=== PATIENT | female | born 1940 | race Caucasian/White ===

== ENCOUNTER 2024-05-12 20:15 | Inpatient (IN) | payer MEDICARE, OTHER, SELFPAY ==
--- OUTSIDE RECORDS SUMMARY | 2024-05-12 20:20 | XMS_ITS ---
Author Name Unknown Organization [address] [place] [address] Medical Cli [facility] Address [address] [place] [phone] Care Team Providers Care Set Up And Lay Out Inspector Name Role Phone Rebekah Lemusew Primary Care Provider REASON FOR VISIT Eliquis unaffordable Medications Medication SIG (Take, Route, Frequency, Duration) Notes Start Date End Date Status Apixaban 5 MG 1 tablet Orally Twic e a day for 90 days 05/07/2022 Active Eliquis 5 MG Take one tablet Oral ly twice daily for 90 days 04/26/2024 Active Social History Sex Assigned At : Social History Observation Description Sex Assigned At Female Encounters Encounter Location Date Provider Diagnosis [address] [place] [address] [facility] [address] [place] [phone] 04/22/2024 Zain Lemus Venous thrombosis I82.90 Assessments Encounter Date Diagnosis (ICD Code) Assessment Notes Treatment Notes Treatment Clinical Notes 04/22/2024 Venous thrombosis (ICD-10 - I82.90) Plan Of Treatment Medication Medication Name Sig Start Date Stop Date Notes Apixaban 5 MG 1 tablet Orally Twice a day for 90 days 11/2021 Eliquis 5 MG Take one tablet Oral ly twice daily for 90 days 04/26/2024 Next Appt Details Provider Name:Zain gallardo, 05/28/2024 04:40:00 PM, [address] [place] [address], [phone], Progress Notes * ALBAN Wilda LDOB: [birth year] (84 yo F)Acc No.[id number]:04/22/2024 Patient:?Wilda THEODORE :1940???Age:84 Y???Sex:Female Address:[facility] [place], [address] * Refills? Continue Apixaban Tablet, 5 MG, Orally, 180 Tablet, 1 tablet, Twice a day, 90 days, Refills=0 Start Eliquis Tablet, 5 MG, Orally, 180 Tablet, Take one tablet, twice daily, 90 days, Refills=0 * true * Date:? Generated for Alex cobb/Marla/eTransmitting on:?05/12/2024 08:20 PM CDT
--- OUTSIDE RECORDS SUMMARY | 2024-05-12 20:20 | XMS_ITS ---
Author Name Unknown Organization [address] [place], [place] [address]i luis Address [address] [place] [phone] Care Team Providers Care Air Transportation Provider Name Role Phone Zain Lemus Primary Care Provider Social History Sex Assigned At : Social History Observation Description Sex Assigned At Female Encounters Encounter Location Date Provider Diagnosis [address] [place] [address] [address] [place] [phone] 04/27/2024 Zain Lemus Venous thrombosis I82.90 Assessments Encounter Date Diagnosis (ICD Code) Assessment Notes Treatment Notes Treatment Clinical Notes 04/27/2024 Venous thrombosis (ICD-10 - I82.90) Plan Of Treatment Medication Medication Name Sig Start Date Stop Date Notes Apixaban 5 MG 1 tablet Orally Twice a day 05/07/2022 Next Appt Details Provider Name:Zain Webb paulina, 05/28/2024 04:40:00 PM, [address] [place] [address], [phone], Progress Notes * Shiv PHOENIXine LDOB: [birth year] (84 yo F)Acc No.[id number]:04/27/2024 Patient:?Wilda PHOENIX :1940???Age:84 Y???Sex:Female Address:[address] [place] [address], [address] * Refills? Stop Apixaban Tablet, 5 MG, Orally, 1 tablet, Twice a day * true * Date:? Generated for Printi ng/Faxing/Mimi on:?05/12/2024 08:20 PM CDT
--- OUTSIDE RECORDS SUMMARY | 2024-05-12 20:20 | XMS_ITS ---
Author Name Unknown Organization [address] [place] [address] Cli luis Address [address] [place] [phone] Care Team Providers Care Pinball Machine Repairer Name Role Phone Zain Lemus Primary Care Provider REASON FOR VISIT 6 wk f/u med check Social History Sex Assigned At : Social History Observation Description Sex Assigned At Female Encounters Encounter Location Date Provider Diagnosis [address] [place] [address] [address] [place] [phone] 04/30/2024 Zain Lemus Plan Of Treatment Next Appt Details Provider Name:Zain gallardo, 05/28/2024 04:40:00 PM, [address] [place] [address], [phone], Progress Notes * PHOENIX Wilda LDOB: [birth year] (84 yo F)Acc No.[id number]:04/30/2024 Progress Notes Patient:?Wilda PHOENIX Pradip Provider:?Zain Lemus MD :1940???Age:84 Y???Sex:Female D ate:04/30/2024 Address:[facility] [address] [facility] [id number] Subjective: * Chief Complaints: Objective: Assessment: Plan: Care Plan: * Problems:? * Billing Information: * Visit Code:? * Procedure Codes:? * Electronic signature of Alejo Lemus MD on 05/12/2024 at 08:19 PM CDT Sign off status: Pending * Provider:?Zain Lemus MD Date:?04/30 Generated for Aelx cobb/Marla/Mimi on:?05/12/2024 08:19 PM CDT
--- OUTSIDE RECORDS SUMMARY | 2024-05-12 20:21 | XMS_ITS | Patient Health Record ---
Author Name Unknown Organization [address] [place] [address] Cli luis Address [address] [place] [address] Care Team Providers Care Shaft Sinker Name Role Phone Zain Lemus Primary Care Provider [phone] Sil Roberts Unavailable [phone] Nery Pena Unavailable [phone] Allergies No Known Allergies Reason For Referral Reason 83 y/o female with L E edema needing chcf and child caregiver private home to help with caring for LE and compression socks and is needing help with basic needs in home: food, bathing, cleaning house. Diagnosis 1 Fluid overload, unsp ecified (E87.70) Diagnosis 2 Peripheral edema (R6 0.9) Referral Organization [address] [place] [address] C linic Referring Provider First Name Zain Referring Provider Last Name Allan Referring Provider [facility]erred Provider Specialty Home Health General Notes Radha Banda 2022 09:40:26 AM >pt called and requested Home Health referral be sent to [facility]. Solo Hannah 06/20/2023 07:26:30 AM >waiting on OV note to be signed.Tommy Kimberly 06/25/2023 08:47:03 AM >faxed referral to [facility] home care [phone] # [phone] Sarah 06/25/2023 09:17:59 AM > [facility] home care called stating they are not accepting new referrals at this timeplaTommy Kimberly 06/27/2023 02:41:29 PM >referral faxed to [facility] [phone] ph# [phone], Bella Rosen 10/21/2023 03:40:38 PM >Faxed again to fx#[phone] Feliciano Duncan Helen 11/04/2023 04:16:47 PM >Called [facility] at ph# [phone]. They did not have a referral but did give me fax# [phone]. Will fax again., Susanna Gonzalez 11/05/2023 11:02:33 AM > [facility] said that referral was more home care not home health. Please refer to another agency, Bella Rosen 11/11/2023 10:38:13 AM >Faxed to [facility] fx# [phone], Marni Wiggins 11/25/2023 09:31:15 AM >Spoke w/[facility] in [place] who advised me to send referral to [facility] because pt lives in [facility]. F: [phone] P: [phone], Susanna Gonzalez 11/25/2023 10:29:04 AM > [facility] called and stated that this pt insurance does not cover in home care. They have reached out to two different 's organizations to see about help. They will keep us updated when they find something., Bella Rosen 12/15/2023 10:56:35 AM >[facility] home health notes attached Referral Priority Routine Reason 83 yr old female wit h chronic edema. Please eval and treat. Recommended [place], [place] area Diagnosis 1 Cellulitis of right lower extremity (L03.115) Diagnosis 2 Edema of both legs ( R60.0) Referral Organization [address] [place] [address] bonny Referring Provider First Name Zain Referring Provider Last Name Allan Referring Provider Speciality Family [facility] Referred Provider Specialty Wound Clinic General Notes Marni Wiggins 2023 12:26:02 PM >Faxed referral to [facility] (I called and confirmed this clinic does wound care) F: [phone] P: , Marni Wiggins 12/02/2023 03:10:40 PM >referral has been received. no appointment scheduled., Sil Sanders 12/25/2023 04:26:48 PM >notes attached. sending to provider to close. Referral Priority Routine Reason 83 yo F, chronic luis ma paras LE w/ cellulitis. Needs home health and home wound care. Eval and treat. Fax to [facility] [phone]. Diagnosis 1 Edema of both legs ( R60.0) Referral Organization [address] [place] [address] bonny Referring Provider First Name Zain Referring Provider Last Name [place] Referring Provider [facility] Referred Provider Specialty Home Health Referral Priority Routine Reason 83 y/o female with c ellulitis, stage II decubitus ulcer on right buttocks, needing dressing changes as well as medication assistance. Please evaluate and treat. Diagnosis 1 Cellulitis (L03.90) Referral Organization [address] [place] [address] bonny Referring Provider First Name Zain Referring Provider Last Name [place] [facility] Specialty [facility] Health General Notes Sil Sanders 09:38:38 AM >referral sent to [facility] [phone] ph# [phone]. looked on map for [facility] and says [facility] ArgyleTommy parada Kimberly 02/12/2024 01:36:47 PM >desean avila called said to send it to [facility] per Tommy Maurice Kimberly 02/12/2024 01:41:18 PM >fax [phone] ph# [phone] Referral Priority Routine Medications Medication SIG (Take, Route, Frequency, Duration) Notes Start Date End Date Status Famotidine 20 MG 1 tablet Orally Once a day for 30 days 05/03/2022 Not-Taking Fluticasone Propionate 50 MCG/ACT 1 spray in each nostril Nasally Once a day Not-Taking Garlic 1000 MG 1 capsule Orally onc e daily for 30 days Not-Taking Lisinopril 10 MG 1 tablet Orally Once a day for 30 days 05/02/2022 Not-Taking Magnesium Oxide 250 MG 1 tablet with kyrie d Orally Once a day for 30 days Not-Taking Nephrocaps Not-Takin g Oxygen 3 Litters nasal canula continuously for forever 2litters 05/23/2022 Not-Taking Post-OP Shoe/Soft Top Women - as directed 1 pair 12/28/2023 Not-Taking Sennosides-Docusate Sodium 8.6-50 MG 1 tablet in the evening as needed Orally Once a day 05/02/2022 Not-Taking Vitamin B-6 25 MG 1 tablet Orally Once a day for 30 days Not-Taking Bactrim DS 800-160 MG 2 tablets twice a day for 10 days Orally for 10 days 03/26/2024 Not-Taking Cymbalta 30 MG 1 capsule Orally Onc e a day for 30 days 03/10/2024 Active Vitamin C 1000 MG 1 tablet Orally Once a day Not-Taking Ginseng 100 MG 1 capsule Orally Onc e a day Unknown Furosemide 40 MG 1 tablet Orally Twic e daily for 30 days 03/18/2022 Active Vitamin D 50 MCG (2000 UT) 1 tablet Orally Once a day Unknown Klor-Con M20 20 MEQ 1 tablet with food Orally twice a day for 30 days 10/28/2022 Active Vitamin K2-Vitamin D3 45-2000 MCG-UNIT as directed Orally Unkno wn Bactrim DS 800-160 MG 1 tablet Orally tw ice a day for 10 days 11/26/2023 Not-Taking Blood Pressure Monitoring Soln - as directed 04/15/2023 Not-Taking Eliquis 5 MG Take one tablet Orally twice daily for 90 days 04/26/2024 Active Cefdinir 300 MG 1 tab Orally Twice daily Not-Taking Clotrimazole 1 % 1 application to affected area Externally Twice a day for 28 day(s) Not-Taking Cyanocobalamin 1000 MCG 1 tablet Orally Once a day 05/03/2022 Not-Taking Debrox 6.5 % 5 drops into affecte d ear Otic Twice a day for 4 day(s) 12/05/2022 Not-Taking Diflucan 150 MG 1 tablet as needed yeast infection Orally 11/26/2023 Not-Taking Doxycycline Hyclate 100 MG 1 capsule Orally every 12 hrs Not-Taking Social History Tobacco Use: Social History Observation Description Date Details (start date - stop date) Never Smoker NA - NA Sex Assigned At : Social History Observation Description Sex Assigned At Female Tobacco Use/Smoking Question Answer Notes Are you a nonsmoker Alcohol Screen (Audit-C) Question Answer Notes Did you have a drink containing alcohol in the p ast year? No Points 0 Interpretation Negative Are you an ENDS user: Question Answer Notes Are you an other tobacco user? No SBIRT 2014 Question Answer Notes Patient refused/declined SBIRT screening at this time? No In the past 3 months, how of ten do you have a drink containing alcohol? Never In the past 12 months, did y ou smoke pot, use another street drug, or use a prescription painkiller, stimulant, or sedative for a non-medical reason? No The cumulative score is 0 A referral is not needed Tobacco Control (Standard) Question Answer Notes Tobacco use: Nonsmoker Problems Problem Type SNOMED Code ICD Code Onset Dates Problem Status W/U Status Risk Notes Problem Pulmonary embolism (02525647) Pulmonary embolism (I26.99) Active confirmed Problem 987840482 Establishing care with new doctor, encounter for (Z71.89) Active confirmed Problem Congestive heart failure (70369883) CHF (congestive heart failure) (I50.9) Active confirmed Problem Impacted cerumen (87530446) Cerumen impaction (H61.20) Active confirmed Problem Obstructive sleep apnea syndrome (27555211) NUNU (obstructive sleep apnea) (G47.33) Active confirmed Intolerant of CPAP. Problem 96348566 Fluid overload, unspecified (E87.70) Active confirmed Problem 796948396 Chronic respiratory failure with hypoxia (J96.11) Active confirmed Problem Pressure ulcer of contiguous site of back, buttock and hip, stage 1 (L89.41) Active confirmed Problem 449091913 Morbid obesity, unspecified obesity type (E66.01) Active confirmed Problem 66455213 Adjustment disorder with anxious mood (F43.22) Active confirmed Problem Peripheral edema (02812945) Peripheral edema (R60.9) Active confirmed Problem Adult health examination (761807412) Well adult exam (Z00.00) Active confirmed Problem Disorder of skin AND/OR subcutaneous tissue (35760508) Nodular lesion on surface of skin (L98.9) Active confirmed Problem 068437401 Ingrown toenail (L60.0) Active confirmed Problem Basal cell carcinoma of skin (903777357) BCC (basal cell carcinoma of skin) (C44.91) Active confirmed Problem Dietary management surveillance (874124118) Nutritional counseling (Z71.3) Active confirmed Problem 26014264 Hypertension, unspecified type (I10) Active confirmed Problem 08340583 Current mild episode of major depressive disorder without prior episode (F32.0) Active confirmed Problem 84136602 Congestive heart failure, unspecified HF chronicity, unspecified heart failure type (I50.9) Active confirmed Problem Peripheral venous insufficiency (98830184) Venous stasis dermatitis of both lower extremities (I87.2) Active confirmed Vital Signs Heart Rate 75 /min 04/07/2024 Temperature 98.6 degrees Fahrenheit 04/07/2024 Respiratory Rate 18 /min 04/07/2024 Blood pressure diastolic 89 mm Hg 04/07/2024 Oximetry 95 % 04/07/2024 Height-cm 165.1 cm 04/07/2024 Weight-kg 112.81 kg 03/10/2024 Height 65.0 in 04/07/2024 Blood pressure systolic 124 mm Hg 04/07/2024 Weight 248.7 lbs 03/10/2024 BMI 41.38 kg/m2 03/10/2024 Encounters Encounter Location Date Provider Diagnosis [address] [place] [address] [address] [place] [phone] 06/12/2023 Zain Lemus Nutritional counseling Z71.3 ; Peripheral edema R60.9 and Fluid overload, unspecified E87.[address] [place] [address] [address] [place] [phone] 06/26/2023 Zain Lemus Nutritional counseling Z71.3 ; Hypertension, unspecified type I10 ; Chronic respiratory failure with hypoxia J96.11 and Morbid obesity, unspecified obesity type E66.[address] [place] [address] [address] [place] [address] 11/26/2023 Zain Lemus Morbid obesity, unspecified obesity type E66.01 ; Edema of both legs R60.0 ; Congestive heart failure, unspecified HF chronicity, unspecified heart failure type I50.9 ; Cellulitis L03.90 and Nutritional counseling Z71.[address] [place] [address] [address] [place] [address] 12/12/2023 Zain Lemus Nutritional counseling Z71.3 ; CHF (congestive heart failure) I50.9 and Morbid obesity, unspecified obesity type E66.[address] [place] [address] [address] [place] [address] 12/26/2023 Zain Lemus Nutritional counseling Z71.3 ; CHF (congestive heart failure) I50.9 and Fluid overload, unspecified E87.[address] [place] [address] [address] [place] [address] 02/04/2024 Zain Lemus Nutritional counseling Z71.3 and Cellulitis L03.[address] [place] [address] [address] [place] [address] 02/06/2024 Zain Lemus [address] [place] [address] [address] [place] [address], [place] [address] 02/11/2024 Zain Lemus Cellulitis L03.90 ; Pressure ulcer of contiguous site of back, buttock and hip, stage 1 L89.41 ; Peripheral edema R60.9 and Nutritional counseling Z71.[address] [place] [address] [address] [place] [address] 02/24/2024 Zain Lemus Congestive heart failure, unspecified HF chronicity, unspecified heart failure type I50.9 ; Venous thrombosis I82.90 ; Venous stasis dermatitis of both lower extremities I87.2 ; Cellulitis L03.90 and Noncompliance Z91.[address] [place] [address] [address] [place] [address] 02/24/2024 Zain Lemus [address] [place] [address] [address] [place] [address] 03/10/2024 Zain Lemus Nutritional counseling Z71.3 and Current mild episode of major depressive disorder without prior episode F32.[address] [place] [address] [address] [place] [address] 03/10/2024 Sil Alejandra Adjustment disorder with anxious mood F43.22 and Congestive heart failure, unspecified HF chronicity, unspecified heart failure type I50.[address] [place] [address] [address] [place] [address] 04/05/2024 Sil Roberts CHF (congestive hear t failure) I50.[address] [facility] [address] [place] [address] 04/07/2024 Nery Pena Nutritional counseling Z71.[address] [facility] [address] [place] [address] 04/07/[address] [facility] [address] [place] [address] 06/13/[address] [facility] [address] [place] [address] 06/13/[address] [facility] [address] [place] [address] 06/25/2023 Zain [facility] [address] [place] [address] 11/06/2023 Zain Lemus [facility] [address] [place] [address] 11/13/[address] [facility] [address] [place] [address] 12/10/[address] [facility] [address] [place] [address] 12/16/2023 Zain Lemus [facility] [address] [place] [address] 12/18/2023 Zain Lemus [facility] [address] [place] [address] 12/23/2023 Zain Lemus [facility] [address] [place] [address] 12/24/2023 Zain Lemus [facility] [address] [place] [address] 12/25/2023 Zain Lemus [facility] [address] [place] [address] 12/26/2023 [facility] [address] [place] [address] 01/06/2024 Zain Lemus [facility] [address] [place] [address] 01/20/[address] [facility] [address] [place] [address] 01/23/[address] [facility] [address] [place] [address] 01/29/[address] [facility] [address] [place] [address] 02/09/[address] [facility] [address] [place] [address] 02/12/[address] [facility] [address] [place] [address] 02/13/[address] [facility] [address] [place] [address] 02/25/[address] [facility] [address] [place] [address] 03/05/[address] [facility] [address] [place] [address] 03/16/2024 Zain Lemus Current mild episode of major depressive disorder without prior episode F32.[address] [facility] [address] [place] [address] 03/17/[address] [facility] [address] [place] [address] 03/17/[address] [facility] [address] [place] [address] 03/24/[address] [facility] [address] [place] [address] 03/30/[address] [facility] [address] [place] [address] 03/31/[address] [facility] [address] [place] [address] 04/22/2024 Zain Lemus Venous thrombosis I82.[address] [facility] [address] [place] [address] 04/27/2024 Zain Lemus Venous thrombosis I82.90 Assessments Encounter Date Diagnosis (ICD Code) Assessment Notes Treatment Notes Treatment Clinical Notes 06/12/2023 Peripheral edema (ICD-10 - R60.9) 06/12/2023 Nutritional counseling (ICD-10 - Z71.3) 06/26/2023 Nutritional counseling (ICD-10 - Z71.3) Eating Healthy Foods: Care Instructions material was printed 06/26/2023 Hypertension, unspecified type (ICD-10 - I10) 11/26/2023 Morbid obesity, unspecified obesity type (ICD-10 - E66.01) 11/26/2023 Edema of both legs (ICD-10 - R60.0) 12/12/2023 CHF (congestive heart failure) (ICD-10 - I50.9) patient needs help caring for self. unfortunately, unable to stay at [facility], already done son to help but limited resources not taking rx as written (abx and diuretics). reviewed with pt, she has capacity. phone f/u given difficulty getting to [place]. 12/26/2023 Nutritional counseling (ICD-10 - Z71.3) Eating Healthy Foods: Care Instructions material was printed 02/04/2024 Cellulitis (ICD-10 - L03.90) patient needs inpatient care. She has no help at home and needs elevation, dressing changes. Has no ability to get to bathroom regularly which her lasix is going to require of her. 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 Acutely, however, pt agrees to go to ER. Pt undecided between going to [facility] (closer to home) or [facility]. She has a truck driver with her that will take her 02/04/2024 Nutritional counseling (ICD-10 - Z71.3) Eating Healthy Foods: Care Instructions material was printed 02/11/2024 Cellulitis (ICD-10 - L03.90) 02/11/2024 Pressure ulcer of contiguous site of back, buttock and hip, stage 1 (ICD-10 - L89.41) patient has capacity. she is disorientated, i recommend ER pt declines. Wants to be home, not SNF. educated pt that for home health to come out, she needs to let them do their job (med management, wound care/dressing of paras LE, pressure ulcer buttocks). pt agrees. 12/12/2023 Nutritional counseling (ICD-10 - Z71.3) Eating Healthy Foods: Care Instructions material was printed 12/26/2023 CHF (congestive heart failure) (ICD-10 - I50.9) pt agrees to billable telehealth visit pt doing better per patient/son. home health coming out, helping w/ rx. has wound care total provider time 7 min 02/24/2024 Congestive heart failure, unspecified HF chronicity, unspecified heart failure type (ICD-10 - I50.9) 02/24/2024 Venous thrombosis (ICD-10 - I82.90) 03/10/2024 Nutritional counseling (ICD-10 - Z71.3) Eating Healthy Foods: Care Instructions material was printed 03/10/2024 Current mild episode of major depressive disorder without prior episode (ICD-10 - F32.0) 03/10/2024 Adjustment disorder with anxious mood (ICD-10 - F43.22) 1- 1:45 Meet with pt as per request of Dr Lemus. Explained the role of [facility] along with limitations of confidentiality. Pt is in a wheelchair accompanied by her son, Azar. Pt dressed appropriate for the weather with a blanket on due to being cold . She reported doing pretty well and told me she has a birthday coming up. When asked how she was doing at home she stated my son does not do that well . When asked for clarification she did not report anything. Throughout the interview pt would contradict herself. An example of this was when the pt would make statements that the son took very good care of her and then make statements that he did not. She would also repeat herself several times telling this worker that her two children in a 4-year period. Pt has two living sons that she keeps in contact with. She resides with Azar who is 60 that is her primary manager career. She also has a son in [place] that is 63 that does not drive. They keep in contact on the phone. When asked about cooking and cleaning the pt reported that she did it. Pt son reported that he does most all the cooking and cleaning. When asked who drives, the pt reported that she did. Azar reported that she has not driven in over a year. It appears that the pt cognitive abilities are declining. Discuss how [facility] can assist her and her family in taking better care of her if we know her wishes. Pt does not have DPOA papers. When offered working through DPOA paperwork the pt and her son was in agreement. Pt reported that she wants to go as natural as possible. She does not want to be sustained on machines. Pt wants to be buried with her . DPOA completed but no notary on site. [facility] asked pt about her medications and how she was taking them. She reported that she was taking them and then reported that she was not on any medications. When asking the son what her medications were he was not able to tell this worker. He was also not able to tell me the times nor if the pt takes them. Discussed with the son how pt does not appear to be able to remember to take her medications as prescribed. 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 Worker requested that the son make a list of all medications along with how she is to take them. Suggested that he get a weekly pill systems requirements planner and start assisting his mom to make sure she is taking her medications as prescribed. DPOA done with just needing to be notarized. [facility] requested that pt son schedule her an apt to return to talk with [facility] and requested that he bring DPOA papers back. Also wanted him to bring in list of medications along with showing the pill systems requirements planner to make sure it is set up right. Son is to call this worker to set up a follow up apt as pt was getting uncomfortable in the wheelchair. 03/16/2024 Current mild episode of major depressive disorder without prior episode (ICD-10 - F32.0) 04/05/2024 CHF (congestive heart failure) (ICD-10 - I50.9) 3:30-4:40 Pt was brought in by her son over 45 minutes early. Appointment was scheduled for 4 and pt was here about 3:15. Referred to [facility] by Dr Lemus for Life Planning. Pt was dressed appropriate for the weather/occasion. She appeared well taken care of with clean clothes and groomed. Pt is engaged in conversation at times and other times she appears to not be very alert. She does make good eye contact but at times has a blank look when she is not engaged. No SI/HI reported. DPOA was brought back and scanned into her chart. Pt appointed her son Azar Phoenix as DPOA. She also went through Life Planning questions that point out that she wants to be comfortable with medications but try and be cared for at home. She does not want invasive measures to prolong her life but rather have her symptoms managed with medications. Pt son was in the room during conversation. He brought in pt medications that he was not able to identify or know when they were to be given. She also had a pill systems requirements planner that he was responsible for that was not set up correct. Review of medications along with assisting to set up systems requirements planner. By the end of the appointment he was able to identify the pills, know what they were for and left with a full pill systems requirements planner for the week. It was demonstrated that the son can assist her out of the chair and both report that they are still able to manage her residing at home. Pt did have a hospital stay in [facility], for dehydration. Pt has follow-up Wed for hospital follow up. [facility] encouraged they reach out to the team if any further needs. 04/07/2024 Nutritional counseling (ICD-10 - Z71.3) Eating Healthy Foods: Care Instructions material was printed 04/22/2024 Venous thrombosis (ICD-10 - I82.90) 04/27/2024 Venous thrombosis (ICD-10 - I82.90) 03/10/2024 Congestive heart failure, unspecified HF chronicity, unspecified heart failure type (ICD-10 - I50.9) 02/24/2024 Venous stasis dermatitis of both lower extremities (ICD-10 - I87.2) 12/26/2023 Fluid overload, unspecified (ICD-10 - E87.70) 02/11/2024 Peripheral edema (ICD-10 - R60.9) 12/12/2023 Morbid obesity, unspecified obesity type (ICD-10 - E66.01) 11/26/2023 Congestive heart failure, unspecified HF chronicity, unspecified heart failure type (ICD-10 - I50.9) 06/26/2023 Chronic respiratory failure with hypoxia (ICD-10 - J96.11) 06/12/2023 Fluid overload, unspecified (ICD-10 - E87.70) 06/26/2023 Morbid obesity, unspecified obesity type (ICD-10 - E66.01) 11/26/2023 Cellulitis (ICD-10 - L03.90) educated patient and son (brought him back to exam room from waiting room to help his mom) importance of taking rx and asked . Called [facility], reviewed situation - they declined to see patient as they have tried several times to engage patient in home health and wound care and she would not engage I called [facility] and talked w/ Landy - they will do home health and wound care at home however unable to get a hold of patient and son. I talked with son and patient in parking lot as they were leaving and they agree to talk w/ [facility] to arrange. I called [facility] on my cell, brought it to the son in car so they can arrange home health. Son talked w/ [facility] and arranged times for their team to come out. Unfortunately son reports he has new cell phone but it's not setup and he did not bring with. I informed patient if he does not have home health and wound care today or tomorrow in their home he should bring his phone either to his local phone provider he got it from to set it up or bring with him to our clinic and we can help set it up for him. Azar and patient expressed understanding. 75 min spent in patient care and coordination. 02/11/2024 Nutritional counseling (ICD-10 - Z71.3) Eating Healthy Foods: Care Instructions material was printed 02/24/2024 Cellulitis (ICD-10 - L03.90) 02/24/2024 Noncompliance (ICD-10 - Z91.199) here w/ son. [facility] assisted family w/ this. she has abx from hospital discharge. needs lasix and eliquis. hold lisinopril as nrml BPs 11/26/2023 Nutritional counseling (ICD-10 - Z71.3) Eating Healthy Foods: Care Instructions material was printed Eating Healthy Foods: Care Instructions material was printed 06/12/2023 Other needs home nursing. if unable to get home nursing, pt is open to trying [facility] in [place]. LT topical abx and dressing for superficial wound thigh. antifungal topical to WM for under left breast tinea. 06/26/2023 Other patient not taking rx as written. has difficulty keeping track of own meds. She reports she would like to live in nursing facility. She does not have social interaction she would like living at home. Her home is a converted shed without a kitchen. She has a makeshift kitchen she currently uses for her meal prep. I called [facility] which the patient states she would like to go to. Left messge w/ front end mechanic staff requesting what information is needed from PCM to get Ms Phoenix into [facility]. At our last visit I reached out to [facility] - pt insurance was accepted - however pt would like [facility] instead. 12/26/2023 Other send script for shoes to [facility] [place]. 02/04/2024 Other redressed her RT leg. in clinic, pt states she will go to ER ([place]). I informed pt I will call her son tomorrow to get status update. pt agrees with plan 02/11/2024 Other Will attempt to locate a Home health agency that will provide services. 03/10/2024 Other Son is helping to take care of her and taking her to appointments. cymbalta should help w/ mood and pain for her. 04/07/2024 Other Nery Warren 04/07/2024 03:13:54 PM CDT >84yo female here, in wheelchair with son in the room, for follow up from recent hopsital admit, with david bandages at bilateral lower extremities and reports pain at the posterior calves. Dressings removed and adjusted at this time, pt reports they feel somewhat better. Pt denies needs at this time. Pt reports that she sleeps in a reclinerand agrees to plans to utilize a pillow under her heels when elevated, to avoid skin breakdown. Pt agrees to plans for follow up prn for needs. She stated that home health comes out routinely and changes her dressings. Pt denies needs at this time. Nery Pena 04/07/2024 03:14:03 PM CDT >Joan, please ensure appropriate follow up is scheduled. Thanks! Plan Of Treatment Next Appt Details Provider Name:Zain Lewis Tracey er, 05/28/2024 04:40:00 PM, [address], [place], [address], Insurance Providers Payer Name Payer Address Payer Phone Subscriber Number Group Number Insured Name Patient Relationship to Insured Coverage Start Date Coverage End Date Medicare [address] [place] [address] [id number] Shiv Phoenixine Self - patient is the insured 7 [facility] [address] [place] [address] [id number] Shiv Phoenixine Self - patient is the insured 5 Medical (General) History Medical History History ICD Code blood clot on lungs CHF (congestive heart failure) I50.9 Cellulitis L03.90 Venous stasis I87.8 Surgical History Surgery Date(Month/Year) Appendectomy 1956 Tonsilectomy 1950 cataract removal 2019 cancer removed from both leg 2020 Hospitalization History Reason Date(Month/Year) cellulitis legs 02/2024 CHF 11/2022 blood clot left leg 04/2022 lung blood clots x 2 2019 [facility] Surgery 2014
[2024-05-12 20:47] VITALS: BMI 42.6
--- NOTE | 2024-05-12 21:34 | PC.NURSE ---
Addendum entered by Caty Richard RN 05/12/24 22:41: Dr. Leigh ordered okay for patient to have food and water. Original Note: Dr. Gusman notified of patient's arrival at 20:15.
--- NOTE | 2024-05-12 22:39 | PC.NURSE ---
Patient states that she has a chronic gonzalez and that they changed the gonzalez out to a new one at the [facility].
[2024-05-12 22:41] VITALS: BP 112/67; PULSE 87; PULSE 88; RESP 17; TEMP 36.9; O2SAT 95
--- NOTE | 2024-05-12 22:43 | P.HP_ITS ---
Providers/Chief Complaint 2 Admitting Physician: Kraig Amaya MD Primary Care Provider: SARAH LUONG MD Chief Complaint: Venous Stasis ulcers feet History of Present Illness Wilda Phoenix is a 84 year old female who was brought to [facility] ER today due to worsening right lower extremity ulceration. Patient is a poor historian overall. Significant details are not available with regards to her comorbidities. She states that she has had longstanding lymphedema with stasis dermatitis. She used to get home health and lymphedema wraps at home, however 3 months ago it appears to service was discontinued. She does not know the reason. It appears that the wraps were unable to be changed thereafter. She presented to the emergency room due to significant drainage, foul smell, and cellulitis of the right lower extremity. Maggots were noted in the wound at the outside ER. These were cleaned and patient was transferred to our hospital. Review of notes shows that patient has been on Eliquis 5 mg p.o. twice daily. She does not know the indication for the same, however telemetry monitoring here shows rate controlled A-fib. Presumably Eliquis is on for this reason. Patient is chronically also on oxygen, unable to tell me how much, currently on 2 L/min. She does not know whether this is due to heart failure or lung issues. As far as she is aware she does not have any lung pathology. She does not recall if she has had any venous reflux studies for the lower extremities. She has a urinary catheter, it appears this has been in place for about a month prior to being changed at the outside hospital ER today. Per patient description, it appears this may be due to a neurogenic bladder. States that it was placed for incontinence and dribbling of urine. Denies any recent fever or chills. States she is not a diabetic. Review of Systems 2 General: Reports: 10 or more systems reviewed and unremarkable except in HPI and below Const: Denies: fever(s), chills or body aches Eyes: Denies: change in vision, blurry vision or photophobia ENMT: Reports: hoarseness; Denies: throat pain, enlarged tonsils, odynophagia or nasal congestion Card: Denies: chest pain, palpitations, irregular heart rhythm, edema, swelling of feet/ankles, lightheadedness, pre-syncope, dyspnea on exertion or orthopnea Resp: Denies: dyspnea, productive cough, non-productive cough, wheezing, stridor, pain on inspiration, change in phlegm color, hemoptysis or chest congestion GI: Denies: abdominal pain, nausea, vomiting, hematemesis, coffee ground emesis, dysphagia, heartburn, diarrhea, constipation, GI cramping, change in stool character, hematochezia or melena : Denies: flank pain, difficulty voiding, dysuria, urinary frequency, urinary urgency, urinary hesitancy or hematuria Musc: Denies: neck pain, back pain, extremity pain, joint swelling, joint warmth or deformity Neuro: Denies: headache(s), numbness in extremities, weakness in extremities, sensory changes, difficulty walking, frequent falls, dizziness, vertigo, behavioral changes, Slurred speech present or seizure-like activity Psych: Denies: anxiety, depression, suicidal ideation or homicidal ideation Endo: Denies: polyuria, polydipsia, tired all the time, cold intolerance or hot flashes Jeronimo/Lymph: Denies: easy bruising or easy bleeding Medications/Allergies Home Medications Medication Instructions Recorded Confirmed Last Taken Type apixaban 5 mg tablet (Eliquis) 5 mg PO BID 05/12/24 05/12/24 Unknown History clotrimazole 1 % topical cream 1 applic topical Q8H PRN unknown 05/12/24 05/12/24 Unknown History duloxetine 30 mg capsule,delayed 30 mg PO DAILY 05/12/24 05/12/24 Unknown History release furosemide 40 mg tablet 40 mg PO DAILY 05/12/24 05/12/24 Unknown History lactobacillus combination no.4 3 See Rx Instructions .Route .COMPLEX 05/12/24 05/12/24 Unknown History billion cell capsule (Probiotic) melatonin 5 mg sublingual tablet 5 mg sublingual BEDTIME PRN Sleep 05/12/24 05/12/24 Unknown History potassium chloride 20 mEq 20 meq PO BID 05/12/24 05/12/24 Unknown History tablet,extended release(part/cryst) Allergies Allergy/AdvReac Type Severity Reaction Status Date / Time No Known Allergies Allergy Verified 05/12/24 22:08 PFSH Acute 2 PFSH: Medical History (Updated 05/13/24 @ 06:09 by Shayna Leigh MD) Pulmonary emboli Peripheral arterial disease COPD (chronic obstructive pulmonary disease) Chronic venous insufficiency Congestive heart failure Cellulitis Lymphedema Vitals/I&O/Wt Last Vital Signs O2 Del Method Nasal Cannula 05/12/24 20:47 Weight last 48 hrs Weight 116.256 kg Physical Exam 2 Narrative: General: No acute distress, AO x3 HEENT: PERRLA, pupils bilaterally equal and reactive, pallors not present Chest: Normal vesicular breath sounds, no added sounds, equal good air entry bilaterally CVS: S1-S2 regular, no murmurs, no tachycardia, no gallops, no rubs Abdomen: Soft, nontender, no organomegaly, bowel sounds present Neuro: No focal deficits, no facial deformity, AO x3, power 5/5 in all limbs Extremities: Both lower extremity lymphedema, weeping ulceration over the right leg with changes of cellulitis, more obvious posteriorly. Data 05/13/24 05:35 05/13/24 05:35 Other Labs: Outside hospital labs: X-ray of the left foot: No fracture or dislocation. No soft tissue abnormality. No foreign body. Severe degenerative changes of the foot. X-ray of the right foot: No fracture or dislocation. Severe degenerative changes of the foot. Urine analysis: Trace leukocytosis, taken from indwelling Vargas. CBC: WBC 8.4, hemoglobin 11.5, platelet 192 BUN 21, creatinine 0.9, sodium 138, potassium 4.3 T. bili 0.8, AST 17, ALT 29, alkaline phosphatase 125 She has received vancomycin and Zosyn at the outside hospital. A&P Assessment and plan (1) Cellulitis: 84-year-old lady with history described above, chronic lymphedema, with her chart noting a history of chronic venous insufficiency, presenting today with right lower extremity cellulitis. Wound care was performed at outside ER prior to transfer. Reportedly there were maggots in the wound. Start piperacillin/tazobactam and vancomycin, she has received first doses at outside hospital Check blood culture. Check HbA1c (2) Lymphedema: Longstanding lymphedema. Patient states she does not know if she has had any reflux studies performed, however per review of past history, there is a note of chronic venous insufficiency. Typically takes oral Lasix at home For now would use Lasix 40 mg IV every 24 hours Monitor renal function and urine output with the same. (3) Chronic respiratory failure with hypoxia: Patient is typically on chronic home oxygen States she does not know whether this is due to CHF or COPD. Under past history I see COPD CHF and PE listed as prior diagnosis. Will check echocardiogram, BNP to assess for CHF. Check chest x-ray to assess for pulmonary edema, changes of COPD Supplemental O2 to keep sats 92% Lasix as above Plan DVT prophylaxis: Typically on Eliquis, holding for now in case needs further surgical debridement. Consult general surgery. Full code Attestations 2 Medical Necessity Statement*: Greater than 2 midnight stay is anticipated Coding Level of Care Code Acute Code for [facility] Fwd Diagnoses Cellulitis L03.90 Lymphedema I89.0 Chronic respiratory failure with hypoxia J96.11
[2024-05-13] VITALS (8 sets, daily range): BP systolic 105–143; BP diastolic 62–67; PULSE 69–95; RESP 15–18; TEMP 36.4–37.2; O2SAT 90–97
[2024-05-13 05:50] LABS: Basophils # 0.1 10^3/uL (0.0-0.1); Basophils % 0.8 %; Eosinophils # 0.3 10^3/uL (0.0-0.8); Eosinophils % 3.9 %; Hematocrit 32.2 % (36-47); Lymphocytes # 1.1 10^3/uL (0.8-4.8); Mean Corpuscular HGB Conc 31.1 g/dL (30-55); Mean Corpuscular Hemoglobin 32.5 pg (27-33); Mean Corpuscular Volume 104.5 fl (85-98); Mean Platelet Volume 9.8 fL (7.4-10.4); Monocytes # 1.1 10^3/uL (0.2-0.9); Monocytes % 14.9 %; Neutrophils # 4.81 10^3/uL (1.8-7.7); Neutrophils % 65.1 %; Nucleated Red Blood Cells % 0 %; Platelet Count 175 10^3/cmm (157-399); Red Blood Count 3.08 10^6/uL (3.85-5.65); Red Cell Distribution Width 15.7 % (12.1-15.1); White Blood Count 7.39 10^3/uL (3.29-11.43)
--- NOTE | 2024-05-13 06:03 | USCV_ITS ---
Wilda Phoenix Age: 84 Gender: F : 1940 Exam Date: 05/13/2024 08:02 Ordering Phys: Shayna Leigh MD Technologist: KRISTINE Exam Location: [facility] Indication: CHRONIC HEART FAILURE BP: 105 / 64 HR: 100 Rhythm: Atrial fibrillation Technical Quality: Suboptimal MEASUREMENTS (Male / Female) Normal Values 2D ECHO LVOT Diameter 2.0 cm LV Ejection Fraction MOD 4C 64.6 % LV Ejection Fraction MOD 2C 52.2 % LV Ejection Fraction 2C AL 53.8 % LA Diameter 2.7 cm RA Systolic Volume 4C AL 19.9 ml RA Systolic Volume 4C MOD 18.5 ml LA Sys Volume AL 31.8 cm cubed LA Sys Volume Index AL 13.4 cm cubed/m squared Aorta at Sinotubular Diameter 1.8 cm M-MODE LA Ao Ratio MM 0.9 AV Cusp Separation MM 1.7 cm DOPPLER AV Peak Velocity 169.0 cm/s LVOT Peak Velocity 117.0 cm/s AV Area Cont Eq vti 2.9 cm squared AV Area Cont Eq pk 2.2 cm squared MV Peak Velocity 148.0 cm/s MV Area PHT 4.1 cm squared Mitral E to A Ratio 311.0 TR Peak Velocity 124.0 cm/s TR Peak Gradient 6.2 mmHg TR Mean Velocity 104.0 cm/s TR Mean Gradient 4.5 mmHg TR Velocity Time Integral 31.1 cm TV Peak E Velocity 66.0 cm/s Right Atrial Pressure 3.0 mmHg Pulmonary Artery Systolic Pressu 9.2 mmHg PV Peak Velocity 114.0 cm/s RV Ejection Time 0.3 s FINDINGS Left Ventricle Technically limited quality echocardiogram because of poor ultrasonic windows. LV systolic function is normal with EF of 55 to 60%. No regional wall motion abnormalities are seen. Right Ventricle Grossly normal Right Atrium Normal in size Left Atrium Normal in size Mitral Valve Structurally normal mitral valve. Aortic Valve Grossly normal. No significant stenosis or regurgitation. Tricuspid Valve Mild tricuspid regurgitation. Insufficient TR jet to calculate RVSP Pulmonic Valve Not well visualized Pericardium Normal Aorta Normal in size IVC Appears to be normal CONCLUSIONS Technically limited quality echocardiogram because of poor ultrasonic windows. LV systolic function is normal with EF 55 to 60%. Mild tricuspid regurgitation. No comparison studies are available Gerald Quiroz MD (Electronically Signed) Final Date: 13 May 2024 10:49 S
[2024-05-13 06:04] LABS: Estmated Average Glucose 94; Hemoglobin A1C 4.9 % (4.0-6.0)
[2024-05-13 06:05] LABS: Alanine Aminotransferase 11 U/L (0-33); Albumin Level 3.2 g/dL (3.5-5.2); Alkaline Phosphatase 82 U/L (35-105); Anion Gap 12.2 (5-19); Aspartate Amino Transferase 19 U/L (0-32); Blood Urea Nitrogen 17 mg/dL (8-23); Calcium 8.6 mg/dL (8.5-10.5); Carbon Dioxide 31 mmol/L (22-29); Chloride 101 mmol/L (98-107); Creatinine Clr Calc Pharmacy 55.2587; Globulin 3.4 g/dL (1.3-4.6); Glucose 106 mg/dL (65-115); Osmolality Calculated 292 mOsm/kg (285-295); Potassium 4.2 mmol/L (3.5-5.1); Sodium 140 mmol/L (136-145); Total Bilirubin 0.7 mg/dL (0.15-1.2); Total Protein 6.6 g/dL (6.6-8.7)
[2024-05-13 06:06] LABS: Iron 29 ug/dL (37-145); Percent Saturation 14.1 % (20-50); Total Iron Binding Capacity 205 mcg/dl; Unsaturated Iron Binding 176 ug/dL (112-347)
--- NOTE | 2024-05-13 06:07 | XR_ITS ---
WS: [id number] XR chest 1V portable [id number] REASON FOR EXAM: hypoxia, suspect COPD FINDINGS: Moderate tortuosity and ectasia of the thoracic aorta. Mild cardiomegaly. Coarse reticular interstitial lung opacities in the lower mid lung [place] with areas of lucency in th e upper lung [place]. Moderate degenerative spondylosis in the mid and lower thoracic spine. XR/XR chest 1V portable [id number] IMPRESSION: Mild cardiomegaly. Findings in the lung [place] may be chronic and indicative of central lobar emph ysema. Difficult to exclude early congestive failure superimposed on abnormal u nderlying lung.
[2024-05-13 06:25] LABS: Procalcitonin 0.09 ng/mL (0-0.5); Thyroid Stimulating Hormone 1.19 uIU/mL (0.27-4.20); Vitamin B12 327 pg/mL (232-1245)
[2024-05-13 06:27] LABS: Folate Level 10.6 ng/mL (4.8-37.3)
[2024-05-13 06:38] LABS: Chol HDL Ratio 2.66 mg/dL (0.0-4.40); Cholesterol 141 mg/dL (0-200); HDL Cholesterol 53 mg/dL (60-100); LDL Cholesterol Calculated 78 mg/dL (50-129); Triglycerides 52 mg/dL (0-150); VLDL Cholestrol Calculation 10 mg/dL (0-30)
[2024-05-13] MEDS: vancomycin 1,250 MG/250 ML PIGGYBACK 200 MG IV (06:47)
[2024-05-13] MEDS: FUROsemide 10 mg/mL SDV 4mL 40 MG IVP (06:47)
[2024-05-13 06:49] LABS: NT Pro B Type Natriuretic Pept 3052 pg/mL (0-450)
--- NOTE | 2024-05-13 06:57 | ECG_ITS ---
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 Measurements Intervals [place] Rate: 73 P: 0 AR: 0 QRS: 81 QRSD: 144 T: -25 QT: 399 QTc: 443 Interpretive Statements ATRIAL FIBRILLATION RIGHT BUNDLE BRANCH BLOCK [120+ ms QRS DURATION, UPRIGHT V1, 40+ ms S IN I/aVL/V4/V5/V6] No previous ECG available for comparison Electronically Signed On 05-13-2024 9:59:15 CDT by Gerald Quiroz M.D. [id number]
--- NOTE | 2024-05-13 07:28 | P.CONIM_ITS ---
Providers/Reason For Consult 2 Consulting Physician/Specialty*: General surgery Reason for Consult*: Bilateral lower extremity cellulitis Attending Physician: Shayna Leigh MD Primary Care Provider: SRAAH LUONG MD History of Present Illness History of Present Illness Wilda Phoenix is a 84 year old female who presented to our hospital with bilateral lower extremity cellulitis and ulceration on the right leg. Outside hospital reportedly found some maggots on her wounds and therefore we were consulted for evaluation for possible debridement. Review of Systems 2 General: Reports: 10 or more systems reviewed and unremarkable except in HPI and below Medications/Allergies Home Medications Medication Instructions Recorded Confirmed Last Taken Type apixaban 5 mg tablet (Eliquis) 5 mg PO BID 05/12/24 05/12/24 Unknown History clotrimazole 1 % topical cream 1 applic topical Q8H PRN unknown 05/12/24 05/12/24 Unknown History duloxetine 30 mg capsule,delayed 30 mg PO DAILY 05/12/24 05/12/24 Unknown History release furosemide 40 mg tablet 40 mg PO DAILY 05/12/24 05/12/24 Unknown History lactobacillus combination no.4 3 See Rx Instructions .Route .COMPLEX 05/12/24 05/12/24 Unknown History billion cell capsule (Probiotic) melatonin 5 mg sublingual tablet 5 mg sublingual BEDTIME PRN Sleep 05/12/24 05/12/24 Unknown History potassium chloride 20 mEq 20 meq PO BID 05/12/24 05/12/24 Unknown History tablet,extended release(part/cryst) Allergies Allergy/AdvReac Type Severity Reaction Status Date / Time No Known Allergies Allergy Verified 05/12/24 22:08 Current Medications Generic Name Dose Route Start Last Admin Trade Name Freq PRN Reason Stop Dose Admin Furosemide 40 mg 05/13/24 06:15 05/13/24 06:47 Furosemide 10 Mg/Ml Sdv 4ml IVP 40 mg Q24H PAULINA Administration Vancomycin/PEG/NADA/Lysine/Water 1,250 mg in 250 mls @ 200 mls/hr 05/13/24 08:00 05/13/24 06:47 Vancocin IV 200 mls/hr Q18H PAULINA Administration PFSH Acute 2 PFSH: Medical History (Updated 05/13/24 @ 06:09 by Shayna Leigh MD) Pulmonary emboli Peripheral arterial disease COPD (chronic obstructive pulmonary disease) Chronic venous insufficiency Congestive heart failure Cellulitis Lymphedema Vitals/I&O/Wt Last Vital Signs Temp 98.9 F 05/13/24 04:00 Pulse 80 05/13/24 05:00 Resp 18 05/13/24 04:00 BP 105/62 05/13/24 04:00 Pulse Ox 97 05/13/24 04:00 O2 Del Method Nasal Cannula 05/13/24 04:00 O2 Flow Rate 2 05/13/24 04:00 05/12/24 05/13/24 05/13/24 22:59 06:59 14:59 Intake Total 60 / 60 120 / 180 Output Total 400 / 400 800 / 1200 Balance -340 / -340 -680 / -1020 Weight last 48 hrs Weight 260 lb 3.2 oz Weight 256 lb 4.8 oz Physical Exam 2 Extremity: NARRATIVE EXTREMITY EXAM: Bilateral lower extremity edema, there is bilateral lower extremity cellulitis on the right side there are some superficial ulceration especially on the posterior aspect of the leg. No evidence of active purulence, no evidence of maggots in this examination. Data 05/13/24 05:35 05/13/24 05:35 Micro: Microbiology 05/13/24 06:47 Blood Culture - Preliminary Blood SPECIMEN COLLECTED 05/13/24 06:44 Blood Culture - Preliminary Blood SPECIMEN COLLECTED A&P Assessment and plan (1) Cellulitis: (2) Lymphedema: Plan This 84-year-old female with bilateral lower extremity cellulitis who I was consulted for evaluation of bilateral lower extremities for possible need for debridement. While there are some superficial ulceration and wounds in the bilateral lower extremities especially on the posterior aspect of the right side, there is no need for debridement at this point, wounds are fairly superficial and do not appear infected or purulent. I recommended we continue lower extremity elevation, I will likely proceed with compression with Troy bandage to facilitate lymphatic drainage, can continue antibiotic therapy, will reassess on a daily basis for the need of surgical debridement. Coding Level of Care Code Acute Code for [facility] Diagnoses Cellulitis L03.90 Lymphedema I89.0
[2024-05-13] MEDS: duloxetine 30 mg Capsule PO (08:38)
[2024-05-13] MEDS: pantoprazole DR 40 mg Tablet PO (08:38)
[2024-05-13] MEDS: apixaban 5 mg Tablet PO ×2 (08:56→18:49)
[2024-05-13] MEDS: acetaminophen 325 mg Tablet 650 MG PO (08:56)
--- NOTE | 2024-05-13 09:40 | PC.CHAP ---
Pastoral Care Encounter/Spiritual Assessment Type of Contact [] Declined deputy commissioner visit [] Patient/Family/Request visit [] Outpatient visit [] Follow-up visit [] Physician referral [] Code/Alert [x] Routine visit [] Staff referral [] Actively dying [] Patient sleeping [] Family support [] [] Out of room [] Palliative care [] [] Receiving care in room [] Pre-surgical visit [] Trauma [] Long length of stay [] ICU visit [] Other: Relational/Emotional Strength [x] Patient feels connected with others/family/visitors/staff [] Distress [] Loneliness/isolation [] Abandonment Spirituality of Patient [x] Person of Wendy [] Attends Islam of their Wendy [x] Believes in Prayer [] Reads Bible or Taoism materials [] There are Spiritual issues to be addressed Dispatcher Tow Truck Interventions [x] Prayer [x] Active listening [] Non-anxious presence [x] Spiritual/emotional support [] Crisis/trauma care [] Spiritual counseling [] Bereavement support [] Provided bereavement packet [] Provided Bible/devotional materials [] Provided toy/stuffed animal, coloring book to patient or family member [] Provided Communion [] Anointing/[place] [] Salvation [x] Completed spiritual assessment [] Other: Impact on Illness or Injury [] Angry [] Fearful [] Anxious [] Often cries [] Exhaustion [] Unable to work [] Unable to attend congregational [] Unable to walk/stand [] Unable to read [] Unable to drive [] Unable to eat/drink [] Unable to sleep [] Unable to be with family [] Patient intubated [] Other: Summary Time spent with patient 5 min
--- NOTE | 2024-05-13 09:41 | PC.CHAP ---
Pastoral Care Encounter/Spiritual Assessment Type of Contact [] Declined household personal assistant visit [] Patient/Family/Request visit [] Outpatient visit [] Follow-up visit [] Physician referral [] Code/Alert [x] Routine visit [] Staff referral [] Actively dying [] Patient sleeping [x] Family support [] [] Out of room [] Palliative care [] [] Receiving care in room [] Pre-surgical visit [] Trauma [] Long length of stay [] ICU visit [] Other: Relational/Emotional Strength [x] Patient feels connected with others/family/visitors/staff [] Distress [] Loneliness/isolation [] Abandonment Spirituality of Patient [] Person of Wendy [] Attends Oriental Orthodox of their Wendy [] Believes in Prayer [] Reads Bible or Hoahaoism materials [] There are Spiritual issues to be addressed Head Worker Interventions [x] Prayer [] Active listening [x] Non-anxious presence [x] Spiritual/emotional support [] Crisis/trauma care [] Spiritual counseling [] Bereavement support [] Provided bereavement packet [] Provided Bible/devotional materials [] Provided toy/stuffed animal, coloring book to patient or family member [] Provided Communion [] Anointing/[place] [] Salvation [x] Completed spiritual assessment [] Other: Impact on Illness or Injury [] Angry [] Fearful [] Anxious [] Often cries [] Exhaustion [] Unable to work [] Unable to attend orthodoxy [] Unable to walk/stand [] Unable to read [] Unable to drive [] Unable to eat/drink [] Unable to sleep [] Unable to be with family [] Patient intubated [] Other: Summary Time spent with patient 5 min
--- NOTE | 2024-05-13 12:43 | PC.NURSE ---
pt educ on benefits and risks of her legs being elevated. pt refuses to allow staff to elevate legs.
[2024-05-13] MEDS: piperacillin-tazobactam 3.375 GM in sodium chloride 0.9% (plus) 50 ML IV ×2 (13:26→21:03)
--- NOTE | 2024-05-13 15:00 | P.PN_ITS ---
Subjective 2 Subjective: Patient was seen this morning she is alert to person, to place, not to time she follows all commands does report lower extremity weakness, with weeping edema, she normally gets lymphedema wraps,, also complains of lower back pain, denies any falls or any injuries Vitals/I&O/Wt Last Vital Signs Temp 98.4 F 05/13/24 11:14 Pulse 85 05/13/24 11:14 Resp 17 05/13/24 11:14 BP 121/63 05/13/24 11:14 Pulse Ox 94 05/13/24 11:14 O2 Del Method Nasal Cannula 05/13/24 11:14 O2 Flow Rate 3 05/13/24 11:14 05/13/24 05/13/24 05/13/24 06:59 14:59 22:59 Intake Total 120 / 180 850 / 850 Output Total 800 / 1200 Balance -680 / -1020 850 / 850 Weight last 48 hrs Weight 118.025 kg Weight 116.256 kg Physical Exam 2 Const: COMMON NORMALS: no acute distress ORIENTATION/CONSCIOUSNESS: Yes awake, Yes oriented to person and Yes oriented to place Resp: COMMON NORMALS: normal respiratory effort, No retractions, No use of accessory muscles and clear to auscultation bilaterally AUSCULTATION: clear to auscultation bilaterally Cardio: COMMON NORMALS: regular rate, regular rhythm, S1 normal heart sound present and S2 normal heart sound present RATE: regular rate RHYTHM: r egular rhythm HEART SOUNDS: S1 normal heart sound present and S2 normal heart sound present GI: COMMON NORMALS: Normal to inspection, nondistended, normoactive bowel sounds present and non-tender Extremity: NARRATIVE EXTREMITY EXAM: 2+ pitting edema bilateral extremity, we eping edema Neuro: SENSORIUM/ORIENTATION: Yes oriented to person and Yes oriented to place Psych: COMMON NORMALS: mental status grossly normal Data 05/13/24 05:35 05/13/24 05:35 Micro: Microbiology 05/13/24 06:47 Blood Culture - Preliminary Blood SPECIMEN COLLECTED 05/13/24 06:44 Blood Culture - Preliminary Blood SPECIMEN COLLECTED A&P Assessment and plan (1) Cellulitis: 84-year-old lady with history described above, chronic lymphedema, with her chart noting a history of chronic venous insufficiency, presenting today with right lower extremity cellulitis. Wound care was performed at outside ER prior to transfer. Reportedly there were maggots in the wound. Continue piperacillin/tazobactam and vancomycin, she has received first doses at outside hospital Check blood culture. (2) Lymphedema: Longstanding lymphedema. Patient states she does not know if she has had any reflux studies performed, however per review of past history, there is a note of chronic venous insufficiency. Typically takes oral Lasix at home For now would use Lasix 40 mg IV every 24 hours Monitor renal function and urine output with the same. (3) Chronic respiratory failure with hypoxia: Patient is typically on chronic home oxygen States she does not know whether this is due to CHF or COPD. Under past history I see COPD CHF and PE listed as prior diagnosis. Will check echocardiogram, BNP to assess for CHF. Check chest x-ray to assess for pulmonary edema, changes of COPD Supplemental O2 to keep sats 92% Lasix as above (4) Fluid overload: Fluid overload, diastolic CHF exacerbation -continue IV Lasix Plan DVT prophylaxis: Continue Eliquis Full code Plan for today continue broad-spectrum antibiotic, continue IV Lasix Attestations 2 Medical Necessity Statement*: Patient requires hospitalization for cellulitis, fluid overload Diagnoses Cellulitis L03.90 Lymphedema I89.0 Chronic respiratory failure with hypoxia J96.11 Fluid overload E87.70
--- NOTE | 2024-05-13 15:37 | PC.NURSE ---
Ashlyn from [facility] called and asked if patient was ambulatory and wondered if patient was going to be discharged on vancomycin. This nurse told Ashlyn that patient was alert and oriented, there were orders for PT to see her, but nothing had been documented yet. I also told her that there were no orders at this time for patient to be discharged on IV antibiotics, but we could let them know if that changed.
--- NOTE | 2024-05-13 16:16 | PC.OT ---
BOURGEOIS attempted to initiate gathering information for CECILE perrin at 1515, but nursing reports pt had been upset and tearful most of the day and had just recently fallen asleep. She requests therapy not wake her and hold eval for tomorrow. BOURGEOIS and OTR to attempt again tomorrow per pt tolerance.
[2024-05-14] VITALS (9 sets, daily range): BP systolic 94–132; BP diastolic 53–88; PULSE 74–96; RESP 16–19; TEMP 36.1–36.7; O2SAT 93–99
[2024-05-14] MEDS: vancomycin 1,250 MG/250 ML PIGGYBACK 200 MG IV (01:43)
[2024-05-14] MEDS: piperacillin-tazobactam 3.375 GM in sodium chloride 0.9% (plus) 50 ML IV ×3 (04:39→21:06)
[2024-05-14 04:46] LABS: Basophils # 0.1 10^3/uL (0.0-0.1); Basophils % 0.7 %; Eosinophils # 0.6 10^3/uL (0.0-0.8); Eosinophils % 7.7 %; Lymphocytes % 14.3 %; Mean Corpuscular HGB Conc 30.6 g/dL (30-55); Mean Corpuscular Hemoglobin 32.2 pg (27-33); Mean Corpuscular Volume 105.1 fl (85-98); Mean Platelet Volume 9.8 fL (7.4-10.4); Monocytes # 0.9 10^3/uL (0.2-0.9); Monocytes % 12.7 %; Neutrophils # 4.57 10^3/uL (1.8-7.7); Neutrophils % 64.3 %; Nucleated Red Blood Cells % 0 %; Platelet Count 162 10^3/cmm (157-399); Red Blood Count 2.95 10^6/uL (3.85-5.65); Red Cell Distribution Width 15.2 % (12.1-15.1); White Blood Count 7.11 10^3/uL (3.29-11.43)
[2024-05-14 05:04] LABS: Anion Gap 13.5 (5-19); Blood Urea Nitrogen 18 mg/dL (8-23); Calcium 8.3 mg/dL (8.5-10.5); Carbon Dioxide 29 mmol/L (22-29); Chloride 101 mmol/L (98-107); Creatinine Clr Calc Pharmacy 55.7432; Glucose 112 mg/dL (65-115); Osmolality Calculated 293 mOsm/kg (285-295); Potassium 3.5 mmol/L (3.5-5.1); Sodium 140 mmol/L (136-145)
[2024-05-14] MEDS: FUROsemide 10 mg/mL SDV 4mL 40 MG IVP (06:30)
[2024-05-14] MEDS: HYDROcodone-acetaminophen 5-325 mg Tablet 1 TAB PO ×2 (06:31→19:18)
--- NOTE | 2024-05-14 08:12 | P.PN_ITS ---
Subjective 2 Subjective: This 84-year-old female who is admitted with cellulitis of bilateral lower extremities right worse than left. She has been doing well overnight, improved symptoms, less pain in bilateral lower extremities. Vitals/I&O/Wt Last Vital Signs Temp 97.0 F L 05/14/24 07:34 Pulse 85 05/14/24 07:34 Resp 19 H 05/14/24 07:34 BP 108/68 05/14/24 07:34 Pulse Ox 93 05/14/24 07:34 O2 Del Method Nasal Cannula 05/14/24 07:34 O2 Flow Rate 3 05/13/24 15:45 05/13/24 05/14/24 05/14/24 22:59 06:59 14:59 Intake Total 290 / 1140 300 / 1440 Output Total 1500 / 1500 600 / 2100 Balance -1210 / -360 -300 / -660 Weight last 48 hrs Weight 262 lb 3 oz Weight 260 lb 3.2 oz Weight 256 lb 4.8 oz Physical Exam 2 Extremity: NARRATIVE EXTREMITY EXAM: Persistent swelling of bilateral lower extremities, there is erythema and superficial ulceration at the level of the posterior legs of the right side. No evidence of active purulence. Data 05/14/24 04:28 05/14/24 04:28 Micro: Microbiology 05/13/24 06:44 Blood Culture - Preliminary Blood NEGATIVE TO DATE 05/13/24 06:47 Blood Culture - Preliminary Blood NEGATIVE TO DATE A&P Assessment and plan (1) Cellulitis: Plan Patient is showing good progression of her cellulitis, we will continue with elevation of the limbs. The wounds continue to improve by my wrap the wounds by tomorrow morning. No surgical intervention is expected at this time. Patient will require follow-up with wound care clinic and vascular specialist as outpatient. Attestations 2 Medical Necessity Statement*: Per medical team Coding Level of Care Code Acute Code for [facility] Diagnoses Cellulitis L03.90
--- NOTE | 2024-05-14 09:09 | PC.SOCIAL ---
IMM Updated Updated pt on IMM. No questions voiced. Provided pt a copy. Initialed, dated, & timed a copy & placed in chart.
[2024-05-14] MEDS: apixaban 5 mg Tablet PO ×2 (10:23→17:50)
[2024-05-14] MEDS: pantoprazole DR 40 mg Tablet PO (10:23)
[2024-05-14] MEDS: duloxetine 30 mg Capsule PO (10:23)
--- NOTE | 2024-05-14 10:37 | P.PN_ITS ---
Subjective 2 Subjective: Patient was seen this morning, she is alert to person, to place, not to time she follows all commands, tells me that her edema is improving, no chest pain complaints, shortness of breath complaints intermittently Vitals/I&O/Wt Last Vital Signs Temp 97.0 F L 05/14/24 07:34 Pulse 85 05/14/24 07:34 Resp 19 H 05/14/24 07:34 BP 108/68 05/14/24 07:34 Pulse Ox 93 05/14/24 07:34 O2 Del Method Nasal Cannula 05/14/24 07:34 O2 Flow Rate 3 05/13/24 15:45 05/13/24 05/14/24 05/14/24 22:59 06:59 14:59 Intake Total 290 / 1140 300 / 1440 530 / 530 Output Total 1500 / 1500 600 / 2100 Balance -1210 / -360 -300 / -660 530 / 530 Weight last 48 hrs Weight 118.926 kg Weight 118.025 kg Weight 116.256 kg Physical Exam 2 Const: COMMON NORMALS: no acute distress ORIENTATION/CONSCIOUSNESS: Yes awake, Yes oriented to person and Yes oriented to place Resp: COMMON NORMALS: normal respiratory effort, No retractions, No use of accessory muscles and clear to auscultation bilaterally AUSCULTATION: clear to auscultation bilaterally Cardio: COMMON NORMALS: regular rate, regular rhythm, S1 normal heart sound present and S2 normal heart sound present RATE: regular rate RHYTHM: r egular rhythm HEART SOUNDS: S1 normal heart sound present and S2 normal heart sound present GI: COMMON NORMALS: Normal to inspection, nondistended, normoactive bowel sounds present and non-tender Neuro: SENSORIUM/ORIENTATION: Yes oriented to person and Yes oriented to place Psych: COMMON NORMALS: mental status grossly normal Data 05/14/24 04:28 05/14/24 04:28 Micro: Microbiology 05/13/24 06:44 Blood Culture - Preliminary Blood NEGATIVE TO DATE 05/13/24 06:47 Blood Culture - Preliminary Blood NEGATIVE TO DATE A&P Assessment and plan (1) Cellulitis: 84-year-old lady with history described above, chronic lymphedema, with her chart noting a history of chronic venous insufficiency, presenting today with right lower extremity cellulitis. Wound care was performed at outside ER prior to transfer. Reportedly there were maggots in the wound. Continue piperacillin/tazobactam and vancomycin, she has received first doses at outside hospital Check blood culture. (2) Lymphedema: Longstanding lymphedema. Patient states she does not know if she has had any reflux studies performed, however per review of past history, there is a note of chronic venous insufficiency. Typically takes oral Lasix at home For now would use Lasix 40 mg IV every 24 hours Monitor renal function and urine output with the same. (3) Chronic respiratory failure with hypoxia: Patient is typically on chronic home oxygen States she does not know whether this is due to CHF or COPD. Under past history I see COPD CHF and PE listed as prior diagnosis. Will check echocardiogram, BNP to assess for CHF. Check chest x-ray to assess for pulmonary edema, changes of COPD Supplemental O2 to keep sats 92% Lasix as above (4) Fluid overload: Fluid overload, diastolic CHF exacerbation -continue IV Lasix Plan DVT prophylaxis: Continue Eliquis Full code Plan for today continue broad-spectrum antibiotic, continue IV Lasix Attestations 2 Medical Necessity Statement*: Plan for today, up out of bed, PT OT, IV antibiotics, broad-spectrum antibiotic therapy, continue oxygen therapy, for bilateral extremity edema, fluid overload, cellulitis, lymphedema Diagnoses Cellulitis L03.90 Lymphedema I89.0 Chronic respiratory failure with hypoxia J96.11 Fluid overload E87.70
--- NOTE | 2024-05-14 15:52 | PHA.VACGOAL ---
Vancomycin Goal - Goal Vancomycin Goal:: 10-15 mg/L Vancomycin Indication:: SSTI - Therapy Current therapy:: Pip/Tazo Day of therpy:: Day 2 of TBD Actual body weight (kg): 262 lb 3 oz [place] body weight: 57 KG Dosing weight (kg): 81.8 - Data Labs: WBC 7.11 10^3/uL (3.29-11.43) 05/14/24 04:28 RBC 2.95 10^6/uL (3.85-5.65) L 05/14/24 04:28 Hgb 9.50 g/dL (11.27-16.99) L 05/14/24 04:28 Hct 31.0 % (36-47) L 05/14/24 04:28 MCV 105.1 fl (85-98) H 05/14/24 04:28 MCH 32.2 pg (27-33) 05/14/24 04:28 MCHC 30.6 g/dL (30-55) 05/14/24 04:28 RDW 15.2 % (12.1-15.1) H 05/14/24 04:28 Sodium 140 mmol/L (136-145) 05/14/24 04:28 Potassium 3.5 mmol/L (3.5-5.1) 05/14/24 04:28 Chloride 101 mmol/L (98-107) 05/14/24 04:28 Carbon Dioxide 29 mmol/L (22-29) 05/14/24 04:28 Anion Gap 13.5 (5-19) 05/14/24 04:28 BUN 18 mg/dL (8-23) 05/14/24 04:28 Creatinine 1.0 mg/dL (0.5-0.9) H 05/14/24 04:28 GFR Calculation Not Reportable 05/14/24 04:28 Last dialysis session:: N/A Treatment plan:: new consult Regimen:: 1250 MG Q24H Follow up:: MONITOR RENAL FUNCTION AND OBTAIN TROUGH PRIOR TO 4TH DOSE
[2024-05-15] VITALS (9 sets, daily range): BP systolic 138–149; BP diastolic 56–93; PULSE 75–106; RESP 17–18; TEMP 36.4–37.1; O2SAT 90–99
[2024-05-15] MEDS: vancomycin 1,250 MG/250 ML PIGGYBACK 200 MG IV (02:11)
[2024-05-15] MEDS: piperacillin-tazobactam 3.375 GM in sodium chloride 0.9% (plus) 50 ML IV ×3 (03:37→20:17)
[2024-05-15] MEDS: FUROsemide 10 mg/mL SDV 4mL 40 MG IVP (05:31)
[2024-05-15] MEDS: HYDROcodone-acetaminophen 5-325 mg Tablet 1 TAB PO (08:30)
[2024-05-15] MEDS: apixaban 5 mg Tablet PO ×2 (08:30→17:20)
[2024-05-15] MEDS: pantoprazole DR 40 mg Tablet PO (08:30)
[2024-05-15] MEDS: duloxetine 30 mg Capsule PO (08:30)
--- NOTE | 2024-05-15 14:16 | P.PN_ITS ---
Subjective 2 Subjective: Patient was seen this morning, sitting in a chair, denies any fevers, chills, no cough Vitals/I&O/Wt Last Vital Signs Temp 98.0 F 05/15/24 11:48 Pulse 92 05/15/24 11:48 Resp 18 05/15/24 11:48 BP 148/81 05/15/24 11:48 Pulse Ox 90 05/15/24 11:48 O2 Del Method Nasal Cannula 05/15/24 11:48 O2 Flow Rate 2.5 05/15/24 08:00 05/14/24 05/15/24 05/15/24 22:59 06:59 14:59 Intake Total 1010 / 1780 360 / 2140 650 / 650 Output Total 2200 / 2200 250 / 2450 2250 / 2250 Balance -1190 / -420 110 / -310 -1600 / -1600 Weight last 48 hrs Weight 118.926 kg Physical Exam 2 Const: COMMON NORMALS: no acute distress and patient oriented x3 Resp: COMMON NORMALS: normal respiratory effort, No retractions, No use of accessory muscles and clear to auscultation bilaterally AUSCULTATION: clear to auscultation bilaterally Cardio: COMMON NORMALS: regular rate, regular rhythm, S1 normal heart sound present and S2 normal heart sound present RATE: regular rate RHYTHM: r egular rhythm HEART SOUNDS: S1 normal heart sound present and S2 normal heart sound present GI: COMMON NORMALS: Normal to inspection, nondistended, normoactive bowel sounds present and non-tender Extremity: NARRATIVE EXTREMITY EXAM: 2+ edema Neuro: COMMON NORMALS: patient oriented x3 Psych: COMMON NORMALS: mental status grossly normal Data 05/14/24 04:28 05/14/24 04:28 A&P Assessment and plan (1) Cellulitis: 84-year-old lady with history described above, chronic lymphedema, with her chart noting a history of chronic venous insufficiency, presenting today with right lower extremity cellulitis. Wound care was performed at outside ER prior to transfer. Reportedly there were maggots in the wound. Continue piperacillin/tazobactam and vancomycin, Check blood culture, so far negative (2) Lymphedema: Longstanding lymphedema. Patient states she does not know if she has had any reflux studies performed, however per review of past history, there is a note of chronic venous insufficiency. Typically takes oral Lasix at home For now would use Lasix 40 mg IV every 24 hours Monitor renal function and urine output with the same. (3) Chronic respiratory failure with hypoxia: Patient is typically on chronic home oxygen States she does not know whether this is due to CHF or COPD. Under past history I see COPD CHF and PE listed as prior diagnosis. Will check echocardiogram, BNP to assess for CHF. Check chest x-ray to assess for pulmonary edema, changes of COPD Supplemental O2 to keep sats 92% Lasix as above (4) Fluid overload: Fluid overload, diastolic CHF exacerbation -continue IV Lasix Plan DVT prophylaxis: Continue Eliquis Full code Plan for today continue broad-spectrum antibiotic, continue IV Lasix, -4 L Attestations 2 Medical Necessity Statement*: Patient requires hospitalization for fluid overload requiring IV Lasix Diagnoses Cellulitis L03.90 Lymphedema I89.0 Chronic respiratory failure with hypoxia J96.11 Fluid overload E87.70
[2024-05-15 18:06] LABS: Basophils # 0.1 10^3/uL (0.0-0.1); Eosinophils # 0.5 10^3/uL (0.0-0.8); Eosinophils % 5.9 %; Hematocrit 35.8 % (36-47); Lymphocytes # 1.2 10^3/uL (0.8-4.8); Lymphocytes % 15.2 %; Mean Corpuscular Hemoglobin 31.8 pg (27-33); Mean Corpuscular Volume 102.6 fl (85-98); Mean Platelet Volume 9.7 fL (7.4-10.4); Monocytes # 0.6 10^3/uL (0.2-0.9); Monocytes % 7.7 %; Neutrophils # 5.45 10^3/uL (1.8-7.7); Neutrophils % 69.6 %; Nucleated Red Blood Cells % 0 %; Platelet Count 224 10^3/cmm (157-399); Red Blood Count 3.49 10^6/uL (3.85-5.65); Red Cell Distribution Width 14.7 % (12.1-15.1); White Blood Count 7.83 10^3/uL (3.29-11.43)
[2024-05-15 18:27] LABS: Anion Gap 14.8 (5-19); Blood Urea Nitrogen 21 mg/dL (8-23); Calcium 9.1 mg/dL (8.5-10.5); Carbon Dioxide 32 mmol/L (22-29); Chloride 97 mmol/L (98-107); Glucose 142 mg/dL (65-115); Osmolality Calculated 295 mOsm/kg (285-295); Potassium 3.8 mmol/L (3.5-5.1); Sodium 140 mmol/L (136-145)
[2024-05-16] VITALS (7 sets, daily range): BP systolic 109–152; BP diastolic 56–78; PULSE 84–117; RESP 15–18; TEMP 36.5–37; O2SAT 96–99
[2024-05-16] MEDS: vancomycin 1,250 MG/250 ML PIGGYBACK 200 MG IV (02:55)
[2024-05-16 03:36] LABS: Basophils # 0.1 10^3/uL (0.0-0.1); Basophils % 0.7 %; Eosinophils # 0.3 10^3/uL (0.0-0.8); Eosinophils % 3.8 %; Hematocrit 31.9 % (36-47); Lymphocytes # 1.3 10^3/uL (0.8-4.8); Lymphocytes % 15.9 %; Mean Corpuscular Hemoglobin 31.9 pg (27-33); Mean Corpuscular Volume 102.9 fl (85-98); Mean Platelet Volume 9.6 fL (7.4-10.4); Monocytes % 11.3 %; Neutrophils # 5.71 10^3/uL (1.8-7.7); Neutrophils % 68.1 %; Nucleated Red Blood Cells % 0 %; Platelet Count 197 10^3/cmm (157-399); Red Cell Distribution Width 14.6 % (12.1-15.1); White Blood Count 8.39 10^3/uL (3.29-11.43)
[2024-05-16 04:03] LABS: Anion Gap 17.2 (5-19); Blood Urea Nitrogen 23 mg/dL (8-23); Calcium 8.8 mg/dL (8.5-10.5); Carbon Dioxide 30 mmol/L (22-29); Chloride 98 mmol/L (98-107); Glucose 109 mg/dL (65-115); Osmolality Calculated 298 mOsm/kg (285-295); Potassium 3.2 mmol/L (3.5-5.1); Sodium 142 mmol/L (136-145)
[2024-05-16] MEDS: piperacillin-tazobactam 3.375 GM in sodium chloride 0.9% (plus) 50 ML IV ×2 (04:21→11:35)
[2024-05-16] MEDS: FUROsemide 10 mg/mL SDV 4mL 40 MG IVP ×2 (05:30→17:38)
[2024-05-16] MEDS: duloxetine 30 mg Capsule PO (08:39)
[2024-05-16] MEDS: HYDROcodone-acetaminophen 5-325 mg Tablet 1 TAB PO (08:41)
[2024-05-16] MEDS: pantoprazole DR 40 mg Tablet PO (08:41)
[2024-05-16] MEDS: apixaban 5 mg Tablet PO ×2 (08:41→17:38)
[2024-05-16] MEDS: potassium chloride ER 20 mEq Tablet 40 MEQ PO (11:34)
--- NOTE | 2024-05-16 16:57 | P.PN_ITS ---
Subjective 2 Subjective: patient was seen this morning, denies any chest pain, does report edema Vitals/I&O/Wt Last Vital Signs Temp 98.3 F 05/16/24 15:57 Pulse 103 H 05/16/24 15:57 Resp 16 05/16/24 15:57 BP 109/56 05/16/24 15:57 Pulse Ox 96 05/16/24 15:57 O2 Del Method Nasal Cannula 05/16/24 15:57 O2 Flow Rate 3 05/15/24 19:27 05/16/24 05/16/24 05/16/24 06:59 14:59 22:59 Intake Total 780.0 / 1984.0 770 / 770 50 / 820 Output Total 875 / 3375 1950 / 1950 Balance -95.0 / -1391.0 -1180 / -1180 50 / -1130 Weight last 48 hrs Weight 120.746 kg Physical Exam 2 Const: COMMON NORMALS: no acute distress and patient oriented x3 Resp: COMMON NORMALS: normal respiratory effort, No retractions, No use of accessory muscles and clear to auscultation bilaterally AUSCULTATION: clear to auscultation bilaterally Cardio: COMMON NORMALS: regular rate, regular rhythm, S1 normal heart sound present and S2 normal heart sound present RATE: regular rate RHYTHM: r egular rhythm HEART SOUNDS: S1 normal heart sound present and S2 normal heart sound present GI: COMMON NORMALS: Normal to inspection, nondistended, normoactive bowel sounds present, Soft to palpation and non-tender PALPATION: Yes Soft to palpation Extremity: NARRATIVE EXTREMITY EXAM: 2+ edema Neuro: COMMON NORMALS: patient oriented x3 Psych: COMMON NORMALS: mental status grossly normal Data 05/16/24 03:19 05/16/24 03:19 A&P Assessment and plan (1) Cellulitis: 84-year-old lady with history described above, chronic lymphedema, with her chart noting a history of chronic venous insufficiency, presenting today with right lower extremity cellulitis. Wound care was performed at outside ER prior to transfer. Reportedly there were maggots in the wound. Continue piperacillin/tazobactam and vancomycin, Check blood culture, so far negative (2) Lymphedema: Longstanding lymphedema. Patient states she does not know if she has had any reflux studies performed, however per review of past history, there is a note of chronic venous insufficiency. Typically takes oral Lasix at home For now would use Lasix 40 mg IV every 24 hours Monitor renal function and urine output with the same. (3) Chronic respiratory failure with hypoxia: Patient is typically on chronic home oxygen States she does not know whether this is due to CHF or COPD. Under past history I see COPD CHF and PE listed as prior diagnosis. Will check echocardiogram, BNP to assess for CHF. Check chest x-ray to assess for pulmonary edema, changes of COPD Supplemental O2 to keep sats 92% Lasix as above (4) Fluid overload: Fluid overload, diastolic CHF exacerbation -continue IV Lasix Plan DVT prophylaxis: Continue Eliquis Full code Plan for today continue broad-spectrum antibiotic, continue IV Lasix, -4 L Attestations 2 Medical Necessity Statement*: patient needs hospitalization for fluid overload Diagnoses Cellulitis L03.90 Lymphedema I89.0 Chronic respiratory failure with hypoxia J96.11 Fluid overload E87.70
[2024-05-16] MEDS: doxycycline 100 mg Tablet PO (17:38)
[2024-05-17] VITALS (7 sets, daily range): BP systolic 109–151; BP diastolic 61–69; PULSE 78–113; RESP 14–20; TEMP 36.6–36.9; O2SAT 92–99
[2024-05-17] MEDS: doxycycline 100 mg Tablet PO (08:32)
[2024-05-17] MEDS: HYDROcodone-acetaminophen 5-325 mg Tablet 1 TAB PO (08:32)
[2024-05-17] MEDS: duloxetine 30 mg Capsule PO (08:32)
[2024-05-17] MEDS: pantoprazole DR 40 mg Tablet PO (08:32)
[2024-05-17] MEDS: apixaban 5 mg Tablet PO (08:32)
--- NOTE | 2024-05-17 11:30 | P.DS_ITS ---
Discharge Providers Date of Admission: 05/12/24 20:15 Date of Discharge: May 17, 2024 Attending Provider at Admission: Kraig Amaya MD Attending Provider at Discharge: Kraig Amaya MD Primary Care Provider: SARAH LUONG MD Diagnoses at Discharge Discharge Diagnosis (1) Cellulitis: Status: Acute (2) Lymphedema: Status: Acute (3) Chronic respiratory failure with hypoxia: Status: Acute (4) Fluid overload: Status: Acute Reason for Visit Reason for Visit: Venous Stasis ulcers feet Hospital Course Hospital Course Wilda Phoenix is a 84 year old female who was brought to [facility] ER today due to worsening right lower extremity ulceration. Patient is a poor historian overall. Significant details are not available with regards to her comorbidities. She states that she has had longstanding lymphedema with stasis dermatitis. She used to get home health and lymphedema wraps at home, however 3 months ago it appears to service was discontinued. She does not know the reason. It appears that the wraps were unable to be changed thereafter. She presented to the emergency room due to significant drainage, foul smell, and cellulitis of the right lower extremity. Maggots were noted in the wound at the outside ER. These were cleaned and patient was transferred to our hospital. Review of notes shows that patient has been on Eliquis 5 mg p.o. twice daily. She does not know the indication for the same, however telemetry monitoring here shows rate controlled A-fib. Presumably Eliquis is on for this reason. Patient is chronically also on oxygen, unable to tell me how much, currently on 2 L/min. She does not know whether this is due to heart failure or lung issues. As far as she is aware she does not have any lung pathology. She does not recall if she has had any venous reflux studies for the lower extremities. She has a urinary catheter, it appears this has been in place for about a month prior to being changed at the outside hospital ER today. Per patient description, it appears this may be due to a neurogenic bladder. States that it was placed for incontinence and dribbling of urine. Denies any recent fever or chills. States she is not a diabetic. This is a 84-year-old female who is admitted to [facility] for cellulitis, a bilateral extremities, fluid overload, diastolic CHF exacerbation. Patient was managed with broad-spectrum antibiotic therapy, wound care for the cellulitis, diuresis. Overall patient clinically improved, she is -5.5 L, will discharge her on Lasix therapy, with potassium replacement therapy with a close follow-up with a repeat BMP in 24 hours. For her cellulitis she is overall clinically proved with IV antibiotics, will be discharged to [facility] on p.[facility]. antibiotics. For her lymphedema I recommend her starting lymphedema wraps within about a week or so once the swelling and the erythema on her legs have gone down. Patient has a chronic indwelling Vargas catheter, discharged with it in place. Physical Exam Const: COMMON NORMALS: no acute distress and patient oriented x3 Resp: COMMON NORMALS: normal respiratory effort, No retractions, No use of accessory muscles and clear to auscultation bilaterally AUSCULTATION: clear to auscultation bilaterally Cardio: COMMON NORMALS: regular rate, regular rhythm, S1 normal heart sound present and S2 normal heart sound present RATE: regular rate RHYTHM: regular rhythm HEART SOUNDS: S1 normal heart sound present and S2 normal heart sound present GI: COMMON NORMALS: Normal to inspection, nondistended, normoactive bowel sounds present and non-tender Extremity: NARRATIVE EXTREMITY EXAM: 1+ edema Neuro: COMMON NORMALS: patient oriented x3 Psych: COMMON NORMALS: mental status grossly normal Urinary Catheter Management: Vargas: Cath Placed During This Visit: no Reason for Continuing Indwelling Catheter: Chronic Indwelling Urinary Catheter on Admission Discharge Data Studies Completed and Pending Completed Studies During Hospitalization Category Date Time Status CXRP [XR chest 1V portable 13361] Routine Exams 05/13/24 06:07 Completed CV. echo complete* 19003 Routine Ultrasound 05/13/24 06:03 Completed Pending at discharge Category Date Time Status Basic Metabolic Panel AM LABS Lab 05/17/24 04:00 Ordered Basic Metabolic Panel AM LABS Lab 05/18/24 04:00 Ordered Basic Metabolic Panel AM LABS Lab 05/19/24 04:00 Ordered Blood Culture Stat Lab 05/13/24 06:47 Results COVID [SARS Covid-2 Antigen] Routine Lab 05/17/24 08:51 Uncollected Complete Blood Count w/Auto AM LABS Lab 05/17/24 04:00 Ordered Complete Blood Count w/Auto AM LABS Lab 05/18/24 04:00 Ordered Complete Blood Count w/Auto AM LABS Lab 05/19/24 04:00 Ordered NT Pro B Type Natriuretic Pept QAM Lab 05/17/24 04:00 Ordered NT Pro B Type Natriuretic Pept QAM Lab 05/18/24 06:00 Ordered NT Pro B Type Natriuretic Pept QAM Lab 05/19/24 06:00 Ordered Radiology Impressions Chest X-Ray 05/13/24 06:07 IMPRESSION: Mild cardiomegaly. Findings in the lung [place] may be chronic and indicative of central lobar emphysema. Difficult to exclude early congestive failure superimposed on abnormal underlying lung. Laboratory Results WBC 8.39 10^3/uL (3.29-11.43) 05/16/24 03:19 RBC 3.10 10^6/uL (3.85-5.65) L 05/16/24 03:19 Hgb 9.90 g/dL (11.27-16.99) L 05/16/24 03:19 Hct 31.9 % (36-47) L 05/16/24 03:19 MCV 102.9 fl (85-98) H 05/16/24 03:19 MCH 31.9 pg (27-33) 05/16/24 03:19 MCHC 31.0 g/dL (30-55) 05/16/24 03:19 RDW 14.6 % (12.1-15.1) 05/16/24 03:19 Plt Count 197 10^3/cmm (157-399) 05/16/24 03:19 MPV 9.6 fL (7.4-10.4) 05/16/24 03:19 Neut % (Auto) 68.1 % 05/16/24 03:19 Lymph % (Auto) 15.9 % 05/16/24 03:19 [place] % (Auto) 11.3 % 05/16/24 03:19 Eos % (Auto) 3.8 % 05/16/24 03:19 Baso % (Auto) 0.7 % 05/16/24 03:19 Neut # (Auto) 5.71 10^3/uL (1.8-7.7) 05/16/24 03:19 Lymph # (Auto) 1.3 10^3/uL (0.8-4.8) 05/16/24 03:19 [place]aston # (Auto) 1.0 10^3/uL (0.2-0.9) H 05/16/24 03:19 Eos # (Auto) 0.3 10^3/uL (0.0-0.8) 05/16/24 03:19 Baso # (Auto) 0.1 10^3/uL (0.0-0.1) 05/16/24 03:19 Nucleated RBC % (auto) 0 % 05/16/24 03:19 Nucleated RBCs # 0.0 /100WBC 05/16/24 03:19 Sodium 142 mmol/L (136-145) 05/16/24 03:19 Potassium 3.2 mmol/L (3.5-5.1) L 05/16/24 03:19 Chloride 98 mmol/L (98-107) 05/16/24 03:19 Carbon Dioxide 30 mmol/L (22-29) H 05/16/24 03:19 Anion Gap 17.2 (5-19) 05/16/24 03:19 BUN 23 mg/dL (8-23) 05/16/24 03:19 Creatinine 1.0 mg/dL (0.5-0.9) H 05/16/24 03:19 GFR Calculation Not Reportable 05/16/24 03:19 Glucose 109 mg/dL (65-115) 05/16/24 03:19 Estimat Average Glucose 94 05/13/24 05:35 Hemoglobin A1c 4.9 % (4.0-6.0) 05/13/24 05:35 Calculated Osmolality 298 mOsm/kg (285-295) H 05/16/24 03:19 Calcium 8.8 mg/dL (8.5-10.5) 05/16/24 03:19 Iron 29 ug/dL (37-145) L 05/13/24 05:35 TIBC 205 mcg/dl 05/13/24 05:35 % Saturation 14.1 % (20-50) L 05/13/24 05:35 Unsat Iron Binding 176 ug/dL (112-347) 05/13/24 05:35 Total Bilirubin 0.7 mg/dL (0.15-1.2) 05/13/24 05:35 AST 19 U/L (0-32) 05/13/24 05:35 ALT 11 U/L (0-33) 05/13/24 05:35 Alkaline Phosphatase 82 U/L (35-105) 05/13/24 05:35 NT-Pro-B Natriuret Pep 3052 pg/mL (0-450) H 05/13/24 05:35 Total Protein 6.6 g/dL (6.6-8.7) 05/13/24 05:35 Albumin 3.2 g/dL (3.5-5.2) L 05/13/24 05:35 Globulin 3.4 g/dL (1.3-4.6) 05/13/24 05:35 Triglycerides 52 mg/dL (0-150) 05/13/24 05:35 Cholesterol 141 mg/dL (0-200) 05/13/24 05:35 LDL Cholesterol, Calc 78 mg/dL (50-129) 05/13/24 05:35 Total VLDL Cholesterol 10 mg/dL (0-30) 05/13/24 05:35 HDL Cholesterol 53 mg/dL (60-100) L 05/13/24 05:35 Cholesterol/HDL Ratio 2.66 mg/dL (0.0-4.40) 05/13/24 05:35 Vitamin B12 327 pg/mL (232-1245) 05/13/24 05:35 Folate 10.6 ng/mL (4.8-37.3) 05/13/24 05:35 Procalcitonin 0.09 ng/mL (0-0.5) 05/13/24 05:35 TSH 1.19 uIU/mL (0.27-4.20) 05/13/24 05:35 Vitals Last Vital Signs Temp 97.9 F 05/17/24 08:00 Pulse 105 H 05/17/24 08:00 Resp 19 H 05/17/24 08:00 BP 151/66 05/17/24 08:00 Pulse Ox 93 05/17/24 08:00 O2 Del Method Nasal Cannula 05/17/24 08:00 O2 Flow Rate 2.5 05/16/24 19:28 Discharge Plan Discharge Patient Disposition: Xfer SNF Condition: Stable Prescriptions: New doxycycline monohydrate 100 mg Tablet 100 mg PO BID 5 Days Qty: 10 0RF Continued duloxetine 30 mg capsule,delayed release(DR/EC) 30 mg PO DAILY furosemide 40 mg tablet 40 mg PO DAILY melatonin 5 mg Tablet, Sublingual 5 mg SUBLINGUAL BEDTIME PRN (Reason: Sleep) potassium chloride 20 mEq tablet,ER particles/crystals 20 meq PO BID clotrimazole 1 % cream 1 applic TOPICAL Q8H PRN (Reason: unknown) Eliquis 5 mg tablet 5 mg PO BID Probiotic 3 billion cell Capsule See Rx Instructions .ROUTE .COMPLEX Rx Instructions: [facility] Probiotic Maximum Strength Discharge Orders: Discharge Order (Routine); Ordered 05/17/24 Ordered By: Kraig Amaya Discharge Diet: Cardiac Discharge Activity: Resume usual activity Patient Instructions: Opioid Safety Activity Restrictions/Additional Instructions: - Continue Lasix 40 mg daily with potassium replacement therapy -Please recheck kidney function, and potassium tomorrow -I would start lymphedema wraps on her in about a week, when some of the erythema of her lower extremities has improved -Patient has a chronic indwelling Vargas catheter Discharge Attestations Time Spent in Discharge Care*: greater than 30 min Quality Metrics Clinical Quality Measures [ No reported AMI, CVA or VTE this stay] Coding Level of Care Code 17700 Total time (in minutes) for Discharge: 45 Diagnoses Cellulitis L03.90 Lymphedema I89.0 Chronic respiratory failure with hypoxia J96.11 Fluid overload E87.70
[2024-05-17] MEDS: metOLazone 5 MG Tablet PO (11:46)
[2024-05-17] MEDS: FUROsemide 10 mg/mL SDV 4mL 40 MG IVP (11:46)
[2024-05-17] MEDS: potassium chloride ER 20 mEq Tablet 40 MEQ PO (11:46)
--- NOTE | 2024-05-17 12:27 | PC.SOCIAL ---
IMM Update pg 2 of IMM updated and reviewed w/ patient. Copy provided and copy dated, initialed and placed in chart.
[2024-05-17 14:42] LABS: SARS Covid-2 Antigen negative (Negative)
== END 2024-05-17 16:09 | disposition skilled nursing facility (03) | DRG 602 ==
PROVIDERS: Student in an Organized Health Care Education/Training Program; Admitting Provider Family Medicine; PCP Family Medicine; Visit Provider Family Medicine
DX: L03.116 Cellulitis of left lower limb (principal); I50.33 Acute on chronic diastolic (congestive) heart failure; J96.11 Chronic respiratory failure with hypoxia; L03.115 Cellulitis of right lower limb; I48.91 Unspecified atrial fibrillation; N31.9 Neuromuscular dysfunction of bladder, unspecified; R32 Unspecified urinary incontinence; I73.9 Peripheral vascular disease, unspecified; J44.9 Chronic obstructive pulmonary disease, unspecified; M54.50 Low back pain, unspecified; E87.70 Fluid overload, unspecified; Z79.01 Long term (current) use of anticoagulants; Z11.52 Encounter for screening for COVID-19; Z99.81 Dependence on supplemental oxygen; Z96.0 Presence of urogenital implants; Z86.711 Personal history of pulmonary embolism
CPT/HCPCS: 36415; 71045; 80048; 80053; 80061; 82607; 82746; 83036; 83540; 83550; 83880; 84145; 84443; 85025; 87040; 87426; 93005; 93306; 97110; 97116; 97161; 97167; 97530; 97535; J1940; J2543; J3370